=== PATIENT | male | born 1965 | race Caucasian/White ===

== ENCOUNTER 2019-06-04 17:23 | Emergency (ER) | payer SELFPAY ==
--- NOTE | 2019-06-04 17:47 | ED Physician Documentation ---
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 This is happened to him before. He says the last time this happened he was in [place], it was about 4 months ago. He was worked up at the time. He said he had an echocardiogram. He does not know the results but his impression was that nothing significant was wrong with it. Subsequently was put on a statin, hydrochlorothiazide, and metoprolol. He has not been taking these regularly. He did take some hydrochlorothiazide though today. He denies any chest pain or trouble breathing. He just feels slightly weak and like his heart rate is fast. It feels similar to that last episode 4 months ago.) Review of Systems Constitutional: denies: Fever, Chills, Fatigue Cardiac: reports: Palpitations. denies: Chest pain / pressure, Pedal edema, Calf pain Respiratory: denies: Dyspnea, Cough, Hemoptysis, Wheezing PD PAST MEDICAL HISTORY - Present Medications Home Medications: Ambulatory Orders Medication Instructions Recorded Confirmed Atorvastatin Calcium 40 mg PO DAILY #60 tablet 06/04/19 Hydrochlorothiazide 12.5 mg PO DAILY #60 tablet 06/04/19 Lisinopril [Prinivil] 10 mg PO DAILY #60 tablet 06/04/19 Metoprolol Tartrate 25 mg PO BID #120 tablet 06/04/19 Pantoprazole [Protonix] 40 mg PO BID #120 tablet 06/04/19 - Allergies Allergies/Adverse Reactions: Allergies Allergy/AdvReac Type Severity Reaction Status Date / Time No Known Drug Allergies Allergy Verified 06/04/19 17:31 PD ED PE NORMAL - Vitals Vital signs reviewed: Yes - General General: Alert and oriented X 3, No acute distress - HEENT HEENT: PERRL, EOMI - Neck Neck: Supple, no meningeal sign, No bony TTP - Cardiac Cardiac: No murmur, Other (Tachycardic but regular without murmur) - Respiratory Respiratory: No respiratory distress, Clear bilaterally - Abdomen Abdomen: Soft, Non tender - Extremities Extremities: No edema, No calf tenderness / cord - Neuro Neuro: Alert and oriented X 3, Normal speech Results - Vitals Vitals: Vital Signs - 24 hr 06/04/19 06/04/19 06/04/19 17:31 17:49 18:01 Temperature 36.9 C Heart Rate 140 H 133 H 101 H Respiratory 16 21 Rate Blood Pressure 250/159 H 258/177 H 241/158 H O2 Saturation 98 98 06/04/19 18:10 Temperature Heart Rate 102 H Respiratory 15 Rate Blood Pressure 224/155 H O2 Saturation 97 Oxygen O2 Source Room air - EKG (time done) 1740 Rate: Rate (enter#) (129) Rhythm: Sinus tachycardia [place]: Normal QRS: LVH Ischemia: Normal ST segments Computer interpretation: Agree with computer - Labs Labs: Laboratory Tests 06/04/19 06/04/19 06/04/19 17:25 17:47 17:47 WBC 12.4 H RBC 5.12 Hgb 15.0 Hct 44.9 MCV 87.7 MCH 29.3 MCHC 33.4 RDW 13.2 Plt Count 399 MPV 9.6 Neut # (Auto) 9.8 H Lymph # (Auto) 1.4 L [place] # (Auto) 1.0 Eos # (Auto) 0.0 Baso # (Auto) 0.1 Absolute Nucleated RBC 0.00 Nucleated RBC % 0.0 PT INR Sodium 134 L Potassium 3.3 L Chloride 95 L Carbon Dioxide 27 Anion Gap 12.0 BUN 14 Creatinine 0.8 Estimated GFR (MDRD) 101 Glucose 165 H Calcium 10.1 Total Bilirubin 1.0 AST 34 ALT 43 Alkaline Phosphatase 52 Troponin I High Sens Total Protein 8.7 H Albumin 4.8 Globulin 3.8 Albumin/Globulin Ratio 1.2 Lipase 28 TSH Urine Opiates Screen POSITIVE H Ur Oxycodone Screen NEGATIVE Urine Methadone Screen NEGATIVE Ur Propoxyphene Screen NEGATIVE Ur Barbiturates Screen NEGATIVE Ur Tricyclics Screen NEGATIVE Ur Phencyclidine Scrn NEGATIVE Ur Amphetamine Screen NEGATIVE U Methamphetamines Scrn NEGATIVE U Benzodiazepines Scrn NEGATIVE Urine Cocaine Screen NEGATIVE U Cannabinoids Screen NEGATIVE 06/04/19 06/04/19 06/04/19 17:47 17:47 17:47 WBC RBC Hgb Hct MCV MCH MCHC RDW Plt Count MPV Neut # (Auto) Lymph # (Auto) [place] # (Auto) Eos # (Auto) Baso # (Auto) Absolute Nucleated RBC Nucleated RBC % PT 12.3 INR 1.1 Sodium Potassium Chloride Carbon Dioxide Anion Gap BUN Creatinine Estimated GFR (MDRD) Glucose Calcium Total Bilirubin AST ALT Alkaline Phosphatase Troponin I High Sens 10.9 Total Protein Albumin Globulin Albumin/Globulin Ratio Lipase TSH 1.69 Urine Opiates Screen Ur Oxycodone Screen Urine Methadone Screen Ur Propoxyphene Screen Ur Barbiturates Screen Ur Tricyclics Screen Ur Phencyclidine Scrn Ur Amphetamine Screen U Methamphetamines Scrn U Benzodiazepines Scrn Urine Cocaine Screen U Cannabinoids Screen - Rads (name of study) Single view chest x-ray Radiology: EMP read contemporaneously (Normal) PD MEDICAL DECISION MAKING - ED course ED course: This is a 54-year-old gentleman who had hypertensive urgency a couple of months ago and was in the hospital in [place]. He has been noncompliant with the prescriptions he was written for, which included but were not limited to hydrochlorothiazide, lisinopril, and metoprolol. He did take a dose of hydrochlorothiazide today after his symptoms started but had not taken any of the others. He was administered divided doses of IV metoprolol here with significant improvement in his vital signs and he remained relatively asymptomatic. Lab work was reassuring. He was counseled at length that he really needs to take his blood pressure medicines to avoid the significant cardiovascular risk that will come if he does not take care of himself. Departure - Departure Disposition: 01 Home, Self Care Clinical Impression: Sinus tachycardia Hypertension Qualifiers: Hypertension type: essential hypertension Qualified Code(s): I10 - Essential (primary) hypertension Condition: Good Record reviewed to determine appropriate education?: Yes Instructions: ED Hypertension Conf Out Of Control Follow-Up: [facility] [Provider Group] [facility] [Provider Group] Prescriptions: Atorvastatin Calcium 40 mg PO DAILY #60 tablet Hydrochlorothiazide 12.5 mg PO DAILY #60 tablet Lisinopril [Prinivil] 10 mg PO DAILY #60 tablet Metoprolol Tartrate 25 mg PO BID #120 tablet Pantoprazole [Protonix] 40 mg PO BID #120 tablet Comments: It is imperative that you take your blood pressure medicines as prescribed, your blood pressure is significantly elevated without medications and if you do not take the meds you could have a heart attack or stroke or other significant health issue. Return if you develop chest pain or trouble breathing or any other worrisome symptoms. It is also important to follow-up with a local primary care physician, several are listed for you on this form. Call tomorrow for appointments.
[2019-06-04] MEDS ORDERED: METOPROLOL 5 MG/5 ML VIAL IVP STA ×2 (17:49→18:08)
[2019-06-04 17:54] LABS: BASOPHILS # (AUTO) 0.1 10^3/uL (0.0-0.1); BASOPHILS % (AUTO) 0.4 %; EOSINOPHILS % (AUTO) 0.2 %; LYMPHOCYTES # (AUTO) 1.4 10^3/uL (1.5-3.5); LYMPHOCYTES % (AUTO) 11.6 %; MEAN CORPUSCULAR HEMOGLOBIN 29.3 pg (27.0-31.0); MEAN CORPUSCULAR HGB CONC 33.4 g/dL (32.0-36.0); MEAN CORPUSCULAR VOLUME 87.7 fL (80.0-94.0); MEAN PLATELET VOLUME 9.6 fL (7.4-11.4); MONOCYTES % (AUTO) 7.9 %; NEUTROPHILS # (AUTO) 9.8 10^3/uL (1.5-6.6); NEUTROPHILS % (AUTO) 79.3 %; PLT - PLATELET COUNT 399 10^3/uL (130-450); RED BLOOD COUNT 5.12 10^6/uL (4.70-6.10); RED CELL DISTRIBUTION WIDTH 13.2 % (12.0-15.0); WHITE BLOOD COUNT 12.4 x10^3/uL (4.8-10.8)
[2019-06-04 18:02] LABS: INR 1.1 (0.8-1.2); PT - PROTHROMBIN TIME 12.3 secs (9.9-12.6)
[2019-06-04 18:06] LABS: ALBUMIN 4.8 g/dL (3.2-5.5); ALBUMIN/GLOBULIN RATIO 1.2 (1.0-2.2); CALCIUM 10.1 mg/dL (8.5-10.3); CREATININE 0.8 mg/dL (0.6-1.2); TOTAL PROTEIN 8.7 g/dL (6.7-8.2)
[2019-06-04 18:21] LABS: MUDS CUTOFF CONCENTRATIONS CUTOFF CONC BELOW:
[2019-06-04 18:37] LABS: COCAINE SCREEN URINE NEGATIVE (NEGATIVE); METHAMPHETAMINES SCREEN, URINE NEGATIVE (NEGATIVE); OPIATE SCREEN, URINE POSITIVE (NEGATIVE)
--- NOTE | 2019-06-04 18:37 | XRAY Report ---
Reason: Chest pain Procedure Date: 06/04/2019 Accession Number: [id number] / [id number] Procedure: XR - Chest 1 View X-Ray CPT Code: 40415 Final Report FULL RESULT: EXAM: CHEST RADIOGRAPHY EXAM DATE: 06/04/2019 05:54 PM. CLINICAL HISTORY: Chest pain today. COMPARISON: None. TECHNIQUE: 1 view. FINDINGS: Lungs/Pleura: No focal opacities evident. No pleural effusion. No pneumothorax. Mediastinum: Within exam limitations, the cardiomediastinal contour is normal. Other: None. IMPRESSION: Normal single view chest. [facility]
[2019-06-04 18:38] LABS: AMPHETAMINE SCREEN,URINE NEGATIVE (NEGATIVE); BENZODIAZEPINES SCREEN, URINE NEGATIVE (NEGATIVE); METHADONE SCREEN, URINE NEGATIVE (NEGATIVE); OXYCODONE SCREEN, URINE NEGATIVE (NEGATIVE); PROPOXYPHENE SCREEN, URINE NEGATIVE (NEGATIVE); TRICYCLIC ANTIDEPRESSANT,URINE NEGATIVE (NEGATIVE)
[2019-06-04] MEDS ORDERED: METOPROLOL TARTRATE 50 MG TABLET PO STA (18:57)
[2019-06-04] MEDS ORDERED: lisinopriL 5 MG TABLET PO STA (18:57)
[2019-06-04 19:36] VITALS: BP 210/113
== END 2019-06-04 19:33 | disposition home or self-care (01) ==
LOC: ED 17:23
DX: R00.0 Tachycardia, unspecified (principal); I10 Essential (primary) hypertension; Z91.14 Patient's other noncompliance with medication regimen
CPT/HCPCS: 36415; 71045; 83690; 84484; 85610; 93005; 96374; 96376; 99284; A9270; 80053; 80306; 84443; 85025